=== PATIENT | male | born 1985 | race Caucasian/White ===

== ENCOUNTER 2020-07-31 10:36 | Outpatient (REF) | payer OTHER, SELFPAY ==
[2020-07-31 13:33] LABS: Basophils Percent Auto 0.6 % (0-2); Eosinophils Absolute Auto 1.5 X10*3/uL (0.0-0.4); Eosinophils Percent Auto 20.8 % (0-4); Hemoglobin 11.2 g/dl (14.0-18.0); Imm Gran Abs Auto 0.05 X10*3/uL (0.00-0.03); Imm Gran Pct Auto 0.7 % (0.0-0.4); Lymphocytes Absolute Auto 1.6 X10*3/uL (1.2-4.9); Lymphocytes Percent Auto 23.1 % (20-40); Mean Corpuscular Hemoglobin 29.7 pg (27.0-33.0); Mean Corpuscular Volume 92.8 fL (80-98); Mean Platelet Volume 9.1 fL (9.4-12.4); Monocytes Absolute Auto 0.7 X10*3/uL (0.1-1.2); Monocytes Percent Auto 9.8 % (2-11); Neutrophils Absolute Auto 3.1 X10*3/uL (2.0-8.3); Platelet Count 301 X10*3/uL (160-400); Red Blood Count 3.77 X10*6/uL (4.60-5.80); Red Cell Distribution Width 13.2 % (11.0-16.0)
[2020-07-31 13:58] LABS: Alanine Aminotransferase 22 U/L (0-40); Albumin Level 3.7 g/dL (3.5-5.0); Alkaline Phosphatase 73 U/L (39-117); Anion Gap 14 (12-20); Aspartate Amino Transferase 29 U/L (5-37); Bilirubin Total 0.4 mg/dL (0.0-1.0); Blood Urea Nitrogen 16 mg/dL (9-16); Carbon Dioxide 25 mmol/L (22-29); Chloride 106 mmol/L (96-108); Cholesterol 175 mg/dL; Estimated Glomerular Filt Rate > 60; Glucose Fasting 98 mg/dL (60-99); HDL Cholesterol 32 mg/dL; LDL Cholesterol Calculated 109 mg/dl; Potassium 4.8 mmol/L (3.3-5.1); Sodium 140 mmol/L (135-145); Triglycerides 174 mg/dL
[2020-07-31 14:04] LABS: MANUAL DIFF FLAG SCAN; SLIDE REVIEW VERIFIED
[2020-07-31 14:18] LABS: TSH reflex Free T4 1.35 uIU/mL (0.32-4.0)
== END 2020-07-31 10:37 | disposition home or self-care (01) ==
LOC: HO.WFDLDS 10:36
PROVIDERS: Visit Provider Family Medicine
DX: Z00.00 Encounter for general adult medical examination without abnormal findings (principal)
CPT/HCPCS: 36415; 80053; 80061; 84443; 85025

== ENCOUNTER 2021-04-21 16:12 | Emergency (ER) | payer OTHER, SELFPAY ==
--- NOTE | ~2021-04-21 | XR_ITS ---
EXAMINATION: XR hand wrist RT CLINICAL INFORMATION: right hand pain/swelling hx of gout COMPARISON: None. TECHNIQUE: 3 views of the right wrist FINDINGS: No fracture. Normal alignment. There may be subtle erosions along the distal margins of the fifth proximal phalanx. No radiopaque foreign body. There is soft tissue swelling of the second, third, and fourth digits but no underlying osseous abnormality is seen. XR/XR hand wrist RT IMPRESSION: Possible subtle erosions along the distal margins of the fifth proximal phalanx. Soft tissue swelling of the second, third, and fourth fingers but no underlying osseous abnormality of the digits.
[2021-04-21 17:30] VITALS: BP 161/103; PULSE 90; RESP 19; TEMP 37.2; O2SAT 99; BMI 36.0
--- NOTE | 2021-04-21 20:36 | ED.EXTPRO ---
HPI - Extremity Problem General Chief complaint: General Medical Stated complaint: rt hand swollen Time Seen by Provider: 04/21/21 17:01 Source: patient and family Mode of arrival: ambulatory Limitations: no limitations History of Present Illness MD Complaint: extremity pain and extremity swelling Onset (ago): day(s) (3) Pain Consistency: constant Location: right and upper extremity (hand/wrist) Severity scale (1-10): >10 Quality: aching and constant Relieving factors: nothing Exacerbating factors: range of motion and palpation Associated symptoms: denies other symptoms Context: history of gout Related Data Previous Rx's Medication Instructions Recorded docusate sodium 100 mg capsule 100 mg PO BID 30 Days #60 cap 08/22/20 folic acid 1 mg tablet 1 mg PO DAILY #60 tab 08/22/20 loperamide 2 mg capsule 2 mg PO QID PRN 30 Days #120 cap 08/22/20 magnesium hydroxide 400 mg/5 mL 30 ml PO BEDTIME PRN 90 Days #3000 08/22/20 oral suspension (Milk of Magnesia) ml sulfamethoxazole 800 1 tab PO Q12H 10 Days #20 tab 10/21/20 mg-trimethoprim 160 mg tablet (Bactrim DS) gabapentin 300 mg capsule 300 mg PO TID 30 Days #90 cap 12/03/20 clonidine HCl 0.1 mg tablet 0.1 mg PO QID #360 tab 01/12/21 quetiapine 25 mg tablet 25 mg PO BEDTIME #90 tab 01/12/21 naproxen 250 mg tablet 250 mg PO QID PRN #90 tab 03/07/21 acetaminophen 325 mg tablet 650 mg PO Q6H PRN #120 tab 03/31/21 cephalexin 500 mg capsule 500 mg PO Q6H 10 Days #40 cap 04/21/21 doxycycline hyclate 100 mg tablet 100 mg PO BID 10 Days #20 tab 04/21/21 indomethacin 50 mg capsule 50 mg PO TID #30 cap 04/21/21 oxycodone 5 mg tablet 5 mg PO Q6H PRN #14 tab 04/21/21 prednisone 20 mg tablet 60 mg PO DAILY 5 Days #15 tab 04/21/21 Allergies Allergy/AdvReac Type Severity Reaction Status Date / Time No Known Allergies Allergy Verified 04/21/21 17:30 Review of Systems Review of Systems: Constitutional : No Weight loss, No Fever, No Chills, No Night Sweats, No Fatigue, No Malaise ENT/Mouth : No Hearing loss, No Ear Pain, No Nasal Congestion, No Sinus Pain, No Hoarseness, No sore throat, No Rhinorrhea, No Swallowing Difficulty Eyes: No Eye Pain, No Swelling, No Redness, No Foreign Body, No Discharge, No Vision Changes Cardiovascular : No Chest Pain, No SOB, No Dyspnea on Exertion, No Orthopnea, No Edema, No Palpitations Respiratory : No Cough, No Sputum, No Wheezing, No Smoke Exposure, No Dyspnea Gastrointestinal : No Nausea, No Vomiting, No Diarrhea, No Constipation, No abdominal Pain, No Hematochezia, No Melena Genitourinary : no irregular bleeding, No Dysuria, No Urinary Frequency, No Hematuria, No Urinary Incontinence, No Urgency, No Flank Pain, No Urinary Flow Changes, No Hesitancy Musculoskeletal : + right hand/wrist joint pain/swelling, No Myalgias Skin : No Skin Lesions, No rash Neuro : No Weakness, No Numbness, No Paresthesias, No Loss of Consciousness, No Dizziness, No Headache Psych : No Anxiety/Panic, No Depression, No SI/HI/AH/VH, No Social Issues, Heme/Lymph: No Bruising, No Bleeding,No Lymphadenopathy Endocrine : No Polyuria, No Polydipsia, No Temperature Intolerance Yes all other systems are reviewed and are negative [facility] Past Medical History Attestation statement: The following information was validated with the patient. Surgical History No pertinent past surgical history Family History Family History Mother No problems noted. Father No problems noted. Social History Social History Housing: Apartment Alcohol intake: former Patient Tobacco Use Status: Never used Tobacco e-Cigarette/Vaping Use: Never Used Second Hand Smoke Exposure: No Advance Directives: No service: No Current occupational status: unemployed Cognitive needs: No Hearing needs: No Vision needs: No Physical Exam Vital Signs: Vital Signs: Last Vital Signs Temp 98.9 F 04/21/21 17:30 Pulse 90 04/21/21 17:30 Resp 19 04/21/21 17:30 BP 161/103 H 04/21/21 17:30 Pulse Ox 99 04/21/21 17:30 Body Mass Index 36.0 vital signs have been reviewed as normal and appeared to be correct. Blood pressure hypertensive 161/103. Heart rate normal. Respiration rate normal. Temperature normal. Oxygen saturation normal. Appearance: Alert. Oriented X3. No acute distress. Head: Normal external exam. Normocephalic. Atraumatic. Eyes: PERRLA. EOMI. Conjunctiva and sclera normal. Eyelids normal. ENT: Pharynx normal. Uvula midline. Moist mucous membranes. Neck: Normal inspection. Neck supple. FROM. CVS: Normal heart rate and rhythm. Respiratory: No respiratory distress. Painless inspiration. Skin: Skin warm and dry. Normal skin color. Normal skin turgor. No rashes/lesions/lacerations noted. Extremities: Patient has moderate tenderness palpation to the right hand/wrist with limited range of motion and soft tissue swelling and erythema no streaking/induration/fluctuance or edema noted. Most likely gout versus cellulitis. Otherwise all other Extremities exhibit normal range of motion and nontender. Neuro: Oriented X 3. No motor deficit. No sensory deficit. Reflexes normal. Normal steady gait. No focal neuro deficits noted. Vascular: + radial pulses/+ 2 distal pedal pulses/+2 dorsalis pedis b/l. Normal cap refill. No cyanosis noted to upper extremity nails and lower extremity toes nails. Course Course Course Narrative: 36-year-old male with a past medical history of gout presenting to the ED with complaints of atraumatic right hand pain/swelling gout flare up for the past 3 days worse today. Denies any other symptoms related to this. On exam it appears that patient has a gout flare-up versus cellulitic infection. No streaking noted. No fluctuance noted. No edema noted. Consistent with gouty changes not consistent with osteo myelitis. Will DC home with indomethacin, prednisone, oxycodone and antibiotics for possible cellulitic infection instructions to return if any new or worsening symptoms to follow up with primary care provider. Patient and family at bedside understand and agree this plan. MDM - Extremity (Nontraumatic) Medical Records Attestation: I reviewed the patient's medical records. Lab Data Attestation: I reviewed the patient's lab results. Imaging Data Right hand/wrist x-ray: Attestation: I personally reviewed and interpreted this imaging study as follows: Radiologist's impression: FINDINGS: No fracture. Normal alignment. There may be subtle erosions along the distal margins of the fifth proximal phalanx. No radiopaque foreign body. There is soft tissue swelling of the second, third, and fourth digits but no underlying osseous abnormality is seen. XR/XR hand wrist RT IMPRESSION: Possible subtle erosions along the distal margins of the fifth proximal phalanx. ? Soft tissue swelling of the second, third, and fourth fingers but no underlying osseous abnormality of the digits. Discharge Plan Discharge Clinical Impression: Gout Patient Disposition: Home, Self-Care Instructions: Low Purine Diet (ED), Gout (ED) Prescriptions: New cephalexin 500 mg capsule 500 mg PO Q6H 10 Days Qty: 40 RF: 0 doxycycline hyclate 100 mg tablet 100 mg PO BID 10 Days Qty: 20 RF: 0 indomethacin 50 mg capsule 50 mg PO TID Qty: 30 RF: 0 prednisone 20 mg tablet 60 mg PO DAILY 5 Days Qty: 15 RF: 0 oxycodone 5 mg tablet 5 mg PO Q6H PRN (Reason: pain) Qty: 14 RF: 0 No Action docusate sodium 100 mg capsule 100 mg PO BID 30 Days Qty: 60 RF: 3 folic acid 1 mg tablet 1 mg PO DAILY Qty: 60 RF: 4 loperamide 2 mg capsule 2 mg PO QID PRN (Reason: loose stool) 30 Days Qty: 120 RF: 4 magnesium hydroxide [Milk of Magnesia] 400 mg/5 mL suspension 30 ml PO BEDTIME PRN (Reason: constipation) 90 Days Qty: 3000 RF: 1 gabapentin 300 mg capsule 300 mg PO TID 30 Days Qty: 90 RF: 1 quetiapine 25 mg tablet 25 mg PO BEDTIME Qty: 90 RF: 0 clonidine HCl 0.1 mg tablet 0.1 mg PO QID Qty: 360 RF: 1 naproxen 250 mg tablet 250 mg PO QID PRN (Reason: for pain) Qty: 90 RF: 3 acetaminophen 325 mg tablet 650 mg PO Q6H PRN (Reason: pain) Qty: 120 RF: 1 sulfamethoxazole-trimethoprim [Bactrim DS] 800-160 mg tablet 1 tab PO Q12H 10 Days Qty: 20 RF: 0 Print Language: Albanian
[2021-04-21] MEDS: predniSONE 20 MG TABLET 60 MG PO (20:46)
[2021-04-21] MEDS: oxyCODONE HCl Immed Release 5 MG TABLET PO (20:46)
[2021-04-21 21:24] VITALS: RESP 17
== END 2021-04-21 21:25 | disposition home or self-care (01) ==
PROVIDERS: Emergency Provider Internal Medicine; PCP Family Medicine
DX: M10.041 Idiopathic gout, right hand (principal); Z79.899 Other long term (current) drug therapy
CPT/HCPCS: 73110; 73130; 99283; 99284

== ENCOUNTER 2021-07-17 16:31 | Outpatient (REF) | payer OTHER, SELFPAY ==
--- NOTE | ~2021-07-17 | XR_ITS ---
EXAMINATION: XR ANKLE, RIGHT CLINICAL INFORMATION: Strain. COMPARISON: None TECHNIQUE: AP, lateral, and mortise views of the right ankle. FINDINGS: Degenerative change both medially and laterally. The mortise is grossly intact. There is global soft tissue swelling. I must consider a joint effusion. There is also thickening in the region of the Achilles tendon. Correlation would be recommended here. Tendinopathy could not be excluded. XR/XR ankle RT min 3V IMPRESSION: Degenerative changes as described. Possible small effusion. No acute fracture or dislocation. If further evaluation is warranted recommend MR.
[2021-07-17 17:48] LABS: Hematocrit 42.9 % (42.0-52.0); Hemoglobin 13.7 g/dl (14.0-18.0); Mean Corpuscular HGB Conc 31.9 g/dl (31.0-36.0); Mean Corpuscular Hemoglobin 28.4 pg (27.0-33.0); Mean Platelet Volume 9.6 fL (9.4-12.4); Platelet Count 311 X10*3/uL (160-400); Red Blood Count 4.82 X10*6/uL (4.60-5.80); Red Cell Distribution Width 13.2 % (11.0-16.0); White Blood Count 10.7 X10*3/uL (4.8-10.8)
[2021-07-17 18:18] LABS: Iron 18 mcg/dL (45-160); Percent Iron Saturation 5 % (15-50); Total Iron Binding Capacity 357 mcg/dL (228-428); Unsaturated Iron Binding 339 ug/dL; Uric Acid 10.5 mg/dL (3.4-7.0)
== END 2021-07-17 16:32 | disposition home or self-care (01) ==
LOC: HO.XRAY 16:31
PROVIDERS: PCP Family Medicine; Visit Provider Hospitalist
DX: Z00.00 Encounter for general adult medical examination without abnormal findings (principal); M25.571 Pain in right ankle and joints of right foot; S96.911A Strain of unspecified muscle and tendon at ankle and foot level, right foot, initial encounter; D64.9 Anemia, unspecified; Z87.39 Personal history of other diseases of the musculoskeletal system and connective tissue; X58.XXXA Exposure to other specified factors, initial encounter; Y93.9 Activity, unspecified; Y92.9 Unspecified place or not applicable; Y99.9 Unspecified external cause status
CPT/HCPCS: 36415; 73610; 83540; 84550; 85027

== ENCOUNTER 2021-07-22 12:45 | Outpatient (REF) | payer OTHER, SELFPAY ==
--- NOTE | ~2021-07-22 | US_ITS ---
EXAMINATION: US EXTREMITY NONVASCULAR CLINICAL INFORMATION: Epidermal cyst. Fluctuant mass left posterior ankle. COMPARISON: None TECHNIQUE: Limited imaging through bilateral ankle was performed. FINDINGS: Imaging through bilateral posterior ankle reveals a hypodense to echogenic area with shadowing in the subcutaneous soft tissues. The lesion on the right side measures 1.5 x 0.77 x 1.5 cm. The lesion on the left side measures 2.8 x 3.2 x 1.2 cm. US/US extremity nonvascular cantu IMPRESSION: Bilateral hypoechoic to echogenic areas posterior to the ankle joint in the subcutaneous soft tissues, exophytic most consistent with retrocalcaneal bursitis.
== END 2021-07-22 12:46 | disposition home or self-care (01) ==
LOC: HO.US 12:45
PROVIDERS: Visit Provider Family Medicine
DX: L72.0 Epidermal cyst (principal)
CPT/HCPCS: 76882

== ENCOUNTER 2021-08-18 09:36 | Outpatient (REF) | payer OTHER, SELFPAY ==
[2021-08-18 11:58] LABS: Alanine Aminotransferase 23 U/L (0-40); Albumin Level 4.1 g/dL (3.5-5.0); Alkaline Phosphatase 83 U/L (39-117); Anion Gap 12 (12-20); Aspartate Amino Transferase 28 U/L (5-37); Bilirubin Total 0.4 mg/dL (0.0-1.0); Blood Urea Nitrogen 10 mg/dL (9-16); Calcium 9.5 mg/dL (8.4-10.2); Carbon Dioxide 29 mmol/L (22-29); Chloride 108 mmol/L (96-108); Cholesterol 183 mg/dL; Estimated Glomerular Filt Rate > 60; Glucose Random 98 mg/dL (60-115); HDL Cholesterol 31 mg/dL; LDL Cholesterol Calculated 82 mg/dl; Potassium 4.6 mmol/L (3.3-5.1); Sodium 144 mmol/L (135-145); Triglycerides 350 mg/dL
[2021-08-18 12:11] LABS: Appearance Urine CLEAR; Color Urine YELLOW; Glucose Urine UA NEG (NEG); Leukocyte Esterase Urine NEG (NEG); Nitrite Urine NEG (NEG); Specific Gravity - Urine 1.015 (1.005-1.025); Urine Blood NEG (NEG); Urine Ketones NEG (NEG); Urine Protein NEG (NEG-TRACE)
[2021-08-18 12:19] LABS: TSH reflex Free T4 3.15 uIU/mL (0.32-4.0)
[2021-08-18 12:37] LABS: Microalbum/Creatinine Ratio Ur 44.8 ug/mg cr
== END 2021-08-18 09:37 | disposition home or self-care (01) ==
LOC: HO.WFDLDS 09:36
PROVIDERS: Visit Provider Family Medicine
DX: Z00.00 Encounter for general adult medical examination without abnormal findings (principal); I10 Essential (primary) hypertension; M79.89 Other specified soft tissue disorders
CPT/HCPCS: 36415; 80053; 80061; 81003; 82043; 84443

== ENCOUNTER 2021-10-21 10:02 | Outpatient (REF) | payer OTHER, SELFPAY ==
--- NOTE | ~2021-10-21 | XR_ITS ---
EXAMINATION: XR HAND, LEFT CLINICAL INFORMATION: Soft tissue disorder. COMPARISON: None TECHNIQUE: PA, lateral, and oblique views of the left hand. FINDINGS: There is moderate soft tissue swelling PIP joints 2nd through 5th digits. There is minimal loss of PIP and DIP joint space with no bony erosive changes seen. Subchondral cystic changes seen along the proximal phalanx proximal end 4th digit. There is moderate dorsal hand soft tissue swelling as well. There is no acute fracture or dislocation. XR/XR hand LT 2V IMPRESSION: Moderate soft tissue swelling PIP joints all digits and dorsal hand likely cellulitis. There is no fracture seen. There is minimal loss of PIP joints all digits.
[2021-10-21 10:25] LABS: MANUAL DIFF FLAG NO
[2021-10-21 10:37] LABS: Basophils Absolute Auto 0.1 X10*3/uL (0.0-0.2); Basophils Percent Auto 0.6 % (0-2); Eosinophils Absolute Auto 0.4 X10*3/uL (0.0-0.4); Eosinophils Percent Auto 4.6 % (0-4); Hematocrit 46.1 % (42.0-52.0); Hemoglobin 15.1 g/dl (14.0-18.0); Imm Gran Abs Auto 0.03 X10*3/uL (0.00-0.03); Imm Gran Pct Auto 0.4 % (0.0-0.4); Lymphocytes Absolute Auto 1.4 X10*3/uL (1.2-4.9); Mean Corpuscular HGB Conc 32.8 g/dl (31.0-36.0); Mean Corpuscular Hemoglobin 28.3 pg (27.0-33.0); Mean Corpuscular Volume 86.3 fL (80.0-98.0); Mean Platelet Volume 8.9 fL (9.4-12.4); Monocytes Absolute Auto 0.7 X10*3/uL (0.1-1.2); Monocytes Percent Auto 8.1 % (2-11); Neutrophils Absolute Auto 5.7 x10*3/uL (2.0-8.3); Neutrophils Percent Auto 69.3 % (45-73); Platelet Count 408 X10*3/uL (160-400); Red Blood Count 5.34 X10*6/uL (4.60-5.80); Red Cell Distribution Width 13.5 % (11.0-16.0); White Blood Count 8.2 X10*3/uL (4.8-10.8)
[2021-10-21 11:06] LABS: Alanine Aminotransferase 13 U/L (0-40); Albumin Level 4.6 g/dL (3.5-5.0); Alkaline Phosphatase 114 U/L (39-117); Anion Gap 15 (12-20); Aspartate Amino Transferase 18 U/L (5-37); Bilirubin Total 0.9 mg/dL (0.0-1.0); Blood Urea Nitrogen 21 mg/dL (9-16); Calcium 9.9 mg/dL (8.4-10.2); Carbon Dioxide 23 mmol/L (22-29); Chloride 107 mmol/L (96-108); Estimated Glomerular Filt Rate > 60; Glucose Random 98 mg/dL (60-115); Potassium 4.1 mmol/L (3.3-5.1); Rheumatoid Factor < 15.0 IU/mL (<15.0); Sodium 141 mmol/L (135-145); Total Protein 8.2 g/dL (6.5-8.0)
[2021-10-21 11:16] LABS: Erythrocyte Sedimentation Rate 23 MM/HR (0-15)
[2021-10-21 11:23] LABS: Uric Acid 11.1 mg/dL (3.4-7.0)
[2021-10-23 11:32] LABS: Cyclic Citrullinated Peptide <16 UNITS
[2021-10-23 13:47] LABS: Anti Nuclear Antibody Screen NEGATIVE (NEGATIVE)
[2021-10-23 14:52] LABS: CRP High Sensitivity >10.0 mg/L
== END 2021-10-21 10:03 | disposition home or self-care (01) ==
LOC: HO.LAB 10:02
PROVIDERS: PCP Family Medicine; Visit Provider Family Medicine
DX: Z00.00 Encounter for general adult medical examination without abnormal findings (principal); M79.89 Other specified soft tissue disorders; Z87.39 Personal history of other diseases of the musculoskeletal system and connective tissue
CPT/HCPCS: 36415; 73120; 80053; 84550; 85025; 85652; 86038; 86039; 86141; 86200; 86431

== ENCOUNTER 2021-10-31 09:46 | Outpatient (REF) | payer OTHER, SELFPAY ==
[2021-10-31 12:10] LABS: Rheumatoid Factor < 15.0 IU/mL (<15.0); Uric Acid 10.2 mg/dL (3.4-7.0)
[2021-10-31 12:17] LABS: Erythrocyte Sedimentation Rate 3 MM/HR (0-15)
[2021-11-01 14:31] LABS: CRP High Sensitivity 3.5 mg/L
== END 2021-10-31 09:47 | disposition home or self-care (01) ==
LOC: HO.WFDLDS 09:46
PROVIDERS: Visit Provider Family Medicine
DX: M19.041 Primary osteoarthritis, right hand (principal); M19.042 Primary osteoarthritis, left hand; M10.9 Gout, unspecified
CPT/HCPCS: 36415; 84550; 85652; 86141; 86431

== ENCOUNTER 2021-11-25 11:24 | Outpatient (REF) | payer OTHER, SELFPAY ==
[2021-11-25 13:50] LABS: MANUAL DIFF FLAG NO
[2021-11-25 13:54] LABS: Basophils Absolute Auto 0.1 X10*3/uL (0.0-0.2); Basophils Percent Auto 0.8 % (0-2); Eosinophils Absolute Auto 0.5 X10*3/uL (0.0-0.4); Eosinophils Percent Auto 8.3 % (0-4); Hematocrit 41.4 % (42.0-52.0); Imm Gran Abs Auto 0.06 X10*3/uL (0.00-0.03); Lymphocytes Absolute Auto 1.6 X10*3/uL (1.2-4.9); Lymphocytes Percent Auto 25.7 % (20-40); Mean Corpuscular HGB Conc 33.8 g/dl (31.0-36.0); Mean Corpuscular Hemoglobin 29.4 pg (27.0-33.0); Mean Platelet Volume 9.5 fL (9.4-12.4); Monocytes Absolute Auto 0.5 X10*3/uL (0.1-1.2); Monocytes Percent Auto 7.5 % (2-11); Neutrophils Absolute Auto 3.6 x10*3/uL (2.0-8.3); Neutrophils Percent Auto 56.7 % (45-73); Platelet Count 310 X10*3/uL (160-400); Red Blood Count 4.76 X10*6/uL (4.60-5.80); White Blood Count 6.3 X10*3/uL (4.8-10.8)
[2021-11-25 14:53] LABS: Alanine Aminotransferase 23 U/L (0-40); Alkaline Phosphatase 73 U/L (39-117); Anion Gap 13 (12-20); Aspartate Amino Transferase 22 U/L (5-37); Bilirubin Total 0.6 mg/dL (0.0-1.0); Blood Urea Nitrogen 13 mg/dL (9-16); Calcium 9.2 mg/dL (8.4-10.2); Carbon Dioxide 24 mmol/L (22-29); Chloride 109 mmol/L (96-108); Estimated Glomerular Filt Rate 56; Glucose Random 103 mg/dL (60-115); Potassium 4.4 mmol/L (3.3-5.1); Sodium 142 mmol/L (135-145); Total Protein 6.6 g/dL (6.5-8.0)
[2021-11-25 15:04] LABS: Uric Acid 11.3 mg/dL (3.4-7.0)
== END 2021-11-25 11:25 | disposition home or self-care (01) ==
LOC: HO.WFDLDS 11:24
PROVIDERS: Visit Provider Family Medicine
DX: Z00.00 Encounter for general adult medical examination without abnormal findings (principal); M10.9 Gout, unspecified
CPT/HCPCS: 36415; 80053; 84550; 85025

== ENCOUNTER 2022-02-18 10:47 | Outpatient (REF) | payer OTHER, SELFPAY ==
[2022-02-18 14:15] LABS: MANUAL DIFF FLAG NO
[2022-02-18 14:21] LABS: Basophils Absolute Auto 0.1 X10*3/uL (0.0-0.2); Basophils Percent Auto 1.3 % (0-2); Eosinophils Absolute Auto 0.6 X10*3/uL (0.0-0.4); Eosinophils Percent Auto 8.8 % (0-4); Hematocrit 46.3 % (42.0-52.0); Hemoglobin 15.1 g/dl (14.0-18.0); Imm Gran Abs Auto 0.03 X10*3/uL (0.00-0.03); Imm Gran Pct Auto 0.5 % (0.0-0.4); Lymphocytes Absolute Auto 1.6 X10*3/uL (1.2-4.9); Mean Corpuscular HGB Conc 32.6 g/dl (31.0-36.0); Mean Corpuscular Hemoglobin 29.7 pg (27.0-33.0); Mean Platelet Volume 9.8 fL (9.4-12.4); Monocytes Absolute Auto 0.6 X10*3/uL (0.1-1.2); Monocytes Percent Auto 9.9 % (2-11); Neutrophils Absolute Auto 3.5 x10*3/uL (2.0-8.3); Neutrophils Percent Auto 54.5 % (45-73); Platelet Count 285 X10*3/uL (160-400); Red Blood Count 5.09 X10*6/uL (4.60-5.80); Red Cell Distribution Width 14.6 % (11.0-16.0); White Blood Count 6.4 X10*3/uL (4.8-10.8)
[2022-02-18 14:33] LABS: Alanine Aminotransferase 19 U/L (0-40); Albumin Level 4.5 g/dL (3.5-5.0); Alkaline Phosphatase 70 U/L (39-117); Anion Gap 17 (12-20); Aspartate Amino Transferase 22 U/L (5-37); Bilirubin Total 0.7 mg/dL (0.0-1.0); Blood Urea Nitrogen 8 mg/dL (9-16); Calcium 9.4 mg/dL (8.4-10.2); Carbon Dioxide 22 mmol/L (22-29); Chloride 108 mmol/L (96-108); Estimated Glomerular Filt Rate > 60; Glucose Random 91 mg/dL (60-115); Potassium 4.3 mmol/L (3.3-5.1); Sodium 143 mmol/L (135-145); Total Protein 7.3 g/dL (6.5-8.0); Uric Acid 5.7 mg/dL (3.4-7.0)
[2022-02-18 15:08] LABS: Erythrocyte Sedimentation Rate 2 MM/HR (0-15)
[2022-02-20 15:02] LABS: CRP High Sensitivity 5.7 mg/L
== END 2022-02-18 10:48 | disposition home or self-care (01) ==
LOC: HO.WFDLDS 10:47
PROVIDERS: Visit Provider Family Medicine
DX: Z00.00 Encounter for general adult medical examination without abnormal findings (principal); M10.9 Gout, unspecified; M79.89 Other specified soft tissue disorders
CPT/HCPCS: 36415; 80053; 84550; 85025; 85652; 86141

== ENCOUNTER 2023-06-11 08:17 | Outpatient (AMB) | payer OTHER, SELFPAY ==
--- NOTE | 2023-06-11 08:20 | MHC.PC.OV ---
Vital Signs 06/11/23 08:27 Weight 219 lb 2 oz BP 118/70 Blood Pressure Location Lt brachial Position Sitting Respiration 12 Pulse 83 Pulse Source Pulse Oximeter Pulse Oximetry (%) 98 Oxygen Delivery Method Room Air Intake Visit Reasons: Medication Follow Up Intake Note: Patient is here with his mother. Patient requests refills on all of his medications. Patient reports having a swollen thumb and believes it may be a gout flare up. 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 He?is?fasting?however?and?will?get?his?labs?drawn?today. Patient?ran?out?of?allopurinol.??Did?not?call?for?refills. Now?has?significant?flare?up?of?gout?in?right?hand No?other?complaints?today. [facility] Medical History (Updated 05/04/22 @ 13:50 by Darcy Dhillon [facility]) Gout Surgical History No pertinent past surgical history Family History Mother No problems noted. Father No problems noted. Social History Housing: Apartment Alcohol intake: former Patient Tobacco Use Status: Never used Tobacco e-Cigarette/Vaping Use: Never Used Second Hand Smoke Exposure: No service: No Current occupational status: unemployed Current occupational exposures/hazards: No Cognitive needs: No Hearing needs: No Vision needs: No Questionnaire DARRIN-7 AMB Questionnaire DARRIN-7 Date DARRIN - 7 assessed: 04/21/21 Source: Developed by Drs. Seth Giraldo, Jaye Suero, Dennis Almaraz and colleagues, with an educational rita from [employer]. Review of Systems Const Denies chills, Denies fatigue, Denies fever(s), Denies headache(s) and Denies weakness Eyes Denies change in vision ENT Denies dizziness, Denies headache(s), Denies hearing loss, Denies nasal congestion, Denies sinus pain, Denies sinus pressure and Denies sore throat Card Denies chest pain, Denies lightheadedness, Denies dyspnea and Denies other (palpitations) Resp Denies cough, Denies dyspnea and Denies wheezing GI Denies abdominal pain, Denies melena, Denies hematochezia, Denies change in bowel habits, Denies dyspepsia and Denies nausea Denies hematuria and Denies dysuria Musc Details: Bilateral?hand?pain?and?swelling,?right?worse?than?left Denies abnormal gait, Denies myalgias, Denies arthralgias, Denies numbness and Denies tingling Skin/Breast Denies rash, Denies unusual bruising and Denies wounds Neuro Denies abnormal gait, Denies dizziness, Denies headache(s), Denies memory loss, Denies numbness, Denies Sensory deficit (Neuro), Denies tingling and Denies weakness Psych Denies anxiety, Denies depression and Denies memory loss Endo Denies cold intolerance, Denies fatigue, Denies heat intolerance, Denies polydipsia and Denies polyuria Rehan/Lymph Denies easy bleeding and Denies easy bruising Aller/Immun Denies wheezing Physical exam (Primary Care) Vital Signs: Last Vital Signs Pulse 83 06/11/23 08:27 Resp 12 06/11/23 08:27 BP 118/70 06/11/23 08:27 Pulse Ox 98 06/11/23 08:27 Oxygen Delivery Method Room Air 06/11/23 08:27 Tobacco/Smoking Status: Tobacco use Status Tobacco use date assessed 06/11/23 06/11/23 08:30 Patient Tobacco Use Status Never used Tobacco 06/11/23 08:20 e-Cigarette/Vaping Use Never Used 06/11/23 08:20 Const General: no acute distress, well developed, alert and awake Nutritional Appearance: well nourished Orientation/consciousness: patient oriented x3 HENMT Head: Yes normocephalic and Yes atraumatic Ears: hearing grossly normal bilaterally and TM's normal bilaterally General nose exam: Normal external nose present and Normal nares present Mouth: Normal oral and palatal mucosa present and moist mucous membranes Teeth and gingiva: dentition normal Throat: Yes posterior oropharynx normal Eyes Pupils: Equal, round and reactive pupils present and Pupil accommodation reflex normal EOM: EOMs intact bilaterally Neck Neck: Yes normal visual inspection, Yes no lymphadenopathy and Yes trachea midline Thyroid: Thyroid normal Carotids: no bruits Lymphatic: no lymphadenopathy noted Chest Chest palpation & inspection: normal inspection of the chest Resp Effort & Inspection: normal respiratory effort Auscultation: clear to auscultation bilaterally Cardio Rate: regular rate Rhythm: regular rhythm Heart sounds: S1 normal heart sound present, S2 normal heart sound present, no gallops, no murmurs and no rubs Bruits: no abdominal aortic bruits and no carotid bruits GI Palpation (GI): No Abdominal aortic bruit present, Soft to palpation, nontender, No hepatosplenomegaly present and No Rebound tenderness present Auscultation: normal bowel sounds General: Yes no CVA tenderness Back/Spine/Pelvis Back: no CVA tenderness Cervical Spine: cervical ROM normal and No Cervical spine tenderness Thoracic/Lumbar Spine: thoraco-lumbar ROM normal, No pain with thoraco-lumbar ROM, No thoracic spinal tenderness and No lumbar spinal tenderness Skin Lesions: no lesions Rashes: no rashes Trauma: no lacerations or abrasions Wounds: no wounds Nails: normal Neuro General: patient oriented x3, gait normal and CN's II-XI intact bilaterally Cranial nerves: Yes Equal, round and reactive pupils present Cognition (Neuro): normal cognition Gait exam (Neuro): Normal gait present Motor exam (neuro): 5/5 motor strength present throughout Sensory Exam: No Sensory deficit (Neuro) Deep tendon reflexes (DTR's): Right patellar reflex intensity grade: 2+ and Left patellar reflex intensity grade: 2+ Extrem Other: Swelling/tophi?bilateral?hands.??Right?2nd?MP?joint?severely?swollen.?? General: Yes normal to inspection and No edema Psych Appearance: grossly normal Affect: normal affect Attitude: cooperative Thought process: Normal thought process present Assessment and Plan Assessment & Plan (1) Gout: Code(s): M10.9 - Gout, unspecified Plan: Patient?ran?out?of?allopurinol?and?has?not?gotten?any?refills Also?missed?his?appointment?with?rheumatology. Currently?has?significant?gouty?flare?up?in?right?hand?and?has?bilateral?tophi?on?hands?and?fingers Will?give?him?prednisone?and?restart?his?allopurinol. Check?uric?acid Follow-up?in?2?weeks Referring?him?back?to?Rheumatology?and?advised?him?to?ensure?he?does?not?miss?his?appointment. (2) Annual physical exam: Code(s): Z00.00 - Encounter for general adult medical examination without abnormal findings Plan: 38-year-old?male?presents?for?complete?physical?exam Encouraged?healthy?diet?with?active?lifestyle?and?plenty?of?exercise Orders: Orders Comprehensive [place]. Panel Fast Today Z00.00 - Encounter for general adult medical examination without abnormal findings Lipid Panel Today Z00.00 - Encounter for general adult medical examination without abnormal findings Complete Blood Count Auto Diff Today Z00.00 - Encounter for general adult medical examination without abnormal findings Uric Acid Today M10.9 - Gout, unspecified Microalbumin, Random (w Creat) Today I10 - Essential (primary) hypertension TSH reflex Free T4 Today Z00.00 - Encounter for general adult medical examination without abnormal findings UA and rflx microscopic Today Z00.00 - Encounter for general adult medical examination without abnormal findings Medications: New prednisone 40 mg (2 x 20 mg) PO DAILY 10 tabs 0RF 5 days Refilled allopurinol 300 mg PO DAILY 30 tabs 1RF 30 days M10.9 - Gout, unspecified quetiapine 25 mg PO BEDTIME 90 tabs 1RF 90 days Coding Level of Care Code Est Pt Level 4 (87252) Diagnoses Gout M10.9 Annual physical exam Z00.00
[2023-06-11 08:27] VITALS: BP 118/70; PULSE 83; RESP 12; O2SAT 98
== END 2023-06-11 08:58 | disposition home or self-care (01) ==
PROVIDERS: PCP Family Medicine; Visit Provider Family Medicine
DX: M10.9 Gout, unspecified (principal)
CPT/HCPCS: 99214

== ENCOUNTER 2023-06-11 09:04 | Outpatient (REF) | payer OTHER, SELFPAY ==
[2023-06-11 11:40] LABS: MANUAL DIFF FLAG NO
[2023-06-11 11:50] LABS: Basophils Absolute Auto 0.1 X10*3/uL (0.0-0.2); Basophils Percent Auto 0.6 % (0-2); Eosinophils Absolute Auto 0.5 X10*3/uL (0.0-0.4); Eosinophils Percent Auto 6.5 % (0-4); Hematocrit 48.9 % (42.0-52.0); Hemoglobin 16.3 g/dl (14.0-18.0); Imm Gran Abs Auto 0.04 X10*3/uL (0.00-0.03); Imm Gran Pct Auto 0.5 % (0.0-0.4); Lymphocytes Absolute Auto 1.8 X10*3/uL (1.2-4.9); Lymphocytes Percent Auto 21.2 % (20-40); Mean Corpuscular HGB Conc 33.3 g/dl (31.0-36.0); Mean Corpuscular Hemoglobin 29.2 pg (27.0-33.0); Mean Corpuscular Volume 87.6 fL (80.0-98.0); Mean Platelet Volume 9.3 fL (9.4-12.4); Monocytes Absolute Auto 0.7 X10*3/uL (0.1-1.2); Monocytes Percent Auto 7.9 % (2-11); Neutrophils Absolute Auto 5.3 x10*3/uL (2.0-8.3); Neutrophils Percent Auto 63.3 % (45-73); Platelet Count 311 X10*3/uL (160-400); Red Blood Count 5.58 X10*6/uL (4.60-5.80); Red Cell Distribution Width 13.1 % (11.0-16.0); White Blood Count 8.3 X10*3/uL (4.8-10.8)
[2023-06-11 14:26] LABS: Alanine Aminotransferase 18 U/L (0-40); Albumin Level 4.7 g/dL (3.5-5.0); Alkaline Phosphatase 86 U/L (39-117); Anion Gap 13 (12-20); Aspartate Amino Transferase 17 U/L (5-37); Bilirubin Total 0.5 mg/dL (0.0-1.0); Blood Urea Nitrogen 15 mg/dL (9-16); Calcium 9.8 mg/dL (8.4-10.2); Carbon Dioxide 22 mmol/L (22-29); Chloride 108 mmol/L (96-108); Cholesterol 189 mg/dL (<200); Estimated Glomerular Filt Rate > 60; Glucose Fasting 120 mg/dL (60-99); HDL Cholesterol 34 mg/dL (>40); LDL Cholesterol Calculated 122 mg/dL (<100); Potassium 3.9 mmol/L (3.3-5.1); Sodium 139 mmol/L (135-145); Total Protein 8.3 g/dL (6.5-8.0); Triglycerides 168 mg/dL (<150); Uric Acid 9.7 mg/dL (3.4-7.0)
[2023-06-11 14:40] LABS: TSH reflex Free T4 2.67 uIU/mL (0.32-4.0)
== END 2023-06-11 09:05 | disposition home or self-care (01) ==
LOC: HO.WFDLDS 09:04
PROVIDERS: Visit Provider Family Medicine
DX: Z00.00 Encounter for general adult medical examination without abnormal findings (principal); M10.9 Gout, unspecified
CPT/HCPCS: 36415; 80053; 80061; 84443; 84550; 85025

== ENCOUNTER 2023-06-25 09:33 | Outpatient (AMB) | payer OTHER, SELFPAY ==
[2023-06-25 09:49] VITALS: BP 118/88; PULSE 67; RESP 17; O2SAT 98; BMI 34.3
--- NOTE | 2023-06-25 09:49 | A.OFFPC_ITS ---
Vital Signs 06/25/23 09:49 Height 5 ft 7 in Weight 219 lb BMI 34.3 BP 118/88 Blood Pressure Location Rt brachial Position Sitting Respiration 17 Pulse 67 Pulse Source Pulse Oximeter Pulse Oximetry (%) 98 Oxygen Delivery Method Room Air Intake Visit Reasons: f/u labs and gout Policy Intern Required: No Accompanied by: Mother Allergies No Known Allergies Allergy (Verified 06/25/23 09:52) Tobacco use date assessed: 06/25/23 Dental Screening Dental Screen Date: 06/25/23 Did you have a dental visit in the last 12 months?: No Did you have a dental problem in the last 6 months where you did not have access to dental care?: Yes Was dental information given to patient?: Yes (Advise pt to call the insurance) HPI f/u labs and gout HPI Details 38 y/o male presents to f/u gout and CPE -labs. Had given him script for prednisone and restarted his allopurinol. Had made a new referral to rheumatology. Labs were drawn 06/11/23. Reviewed labs with pt. Triglycerides 168. TC 189. LDL 122. HDL low at 34. Uric acid 9.7 mg/dL. He reports he had missed the appt. 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 Pt reports swelling/inflammation has reduced but still notes joint pain on numerous joints. [facility] Medical History (Updated 05/04/22 @ 13:50 by SULAIMAN Lobato) Gout Surgical History No pertinent past surgical history Family History Mother No problems noted. Father No problems noted. Social History Housing: Apartment Alcohol intake: former Patient Tobacco Use Status: Never used Tobacco e-Cigarette/Vaping Use: Never Used Second Hand Smoke Exposure: No service: No Current occupational status: unemployed Current occupational exposures/hazards: No Cognitive needs: No Hearing needs: No Vision needs: No Questionnaire PHQ-9 Over the last 2 weeks, how often have you been bothered by any of the following problems? 1. Little interest or pleasure in doing things: not at all 2. Feeling down, depressed, or hopeless: not at all 3. Trouble falling or staying asleep, or sleeping too much: not at all 4. Feeling tired or having little energy: not at all 5. Poor appetite or overeating: not at all 6. Feeling bad about yourself - or that you are a failure or have let yourself or your family down: not at all 7. Trouble concentrating on things, such as reading the newspaper or watching television: not at all 8. Moving or speaking so slowly that other people could have noticed. Or the opposite - being so fidgety or restless that you have been moving around a lot more than usual: not at all 9. Thoughts that you would be better off or of hurting yourself in some way: not at all Total score: 0 Depression Screening Interpretation: Negative Depression Screening Done: Yes 38547 - PHQ-9 Billing: Yes Source: Developed by Drs. Seth Giraldo, Jaye Suero, Dennis Almaraz and colleagues, with an educational rita from [employer]. Thrive Questionnaire Date Thrive assessed: 06/25/23 I am a: Patient What is your living situation today?: I have a steady place to live Within the past 12 months, did the food you bought not last and you didn't have the money to get more?: Never true Within the past 12 months, did you worry whether your food would run out before you got money to buy more?: Never true Do you have trouble paying for medicines?: No Do you have trouble getting transportation to medical appointments?: No Do you have trouble paying your heating and electricity bill?: No Do you have trouble taking care of your child, family member or friend?: No Do you have trouble with day-to-day activities such as bathing, preparing meals, shopping, managing finances, etc.?: No Are you currently unemployed and looking for a job?: No Are you interested in more education?: No Please select the resources that you would like help with: None Currently or been in a relationship where the following occur: no concerns reported AUDIT C Alcohol Use Questionnaire (AUDIT-C) 1. How often do you have a drink containing alcohol?: Never Total Score: 0 DARRIN-7 AMB Questionnaire DARRIN-7 Date DARRIN - 7 assessed: 06/25/23 Feeling nervous, anxious, or on edge: 2 = More than half the days Not being able to stop or control worryin = More than half the days Worrying too much about different things: 3 = Nearly every day Trouble relaxin = Nearly every day Being so restless that it is hard to sit still: 3 = Nearly every day Becoming easily annoyed or irritable: 3 = Nearly every day Feeling afraid as if something awful might happen: 1 = Several days Total DARRIN-7 score (0-4 normal; 5-9 mild; 10-14 moderate; 15-21 severe): 17 Source: Developed by Drs. Seth Giraldo, Jaye Suero, Dennis Almaraz and colleagues, with an educational rita from [employer]. DARRIN-7 Assessment Billing DARRIN-7 Assessment Tool: DARRIN-7 Assessment 42998 Review of Systems Const Denies chills, Denies fatigue, Denies fever(s), Denies headache(s) and Denies weakness ENT Denies dizziness and Denies headache(s) Card Denies dyspnea Resp Denies cough, Denies dyspnea, Denies wheezing and Denies other (shortness of breath) Musc Denies numbness and Denies tingling Neuro Denies dizziness, Denies headache(s), Denies numbness, Denies tingling and Denies weakness Psych Denies anxiety and Denies depression Endo Denies fatigue Aller/Immun Denies wheezing Physical exam (Primary Care) Vital Signs: Last Vital Signs Pulse 67 06/25/23 09:49 Resp 17 06/25/23 09:49 BP 118/88 06/25/23 09:49 Pulse Ox 98 06/25/23 09:49 Oxygen Delivery Method Room Air 06/25/23 09:49 BMI result Body Mass Index 34.3 Tobacco/Smoking Status: Tobacco use Status Tobacco use date assessed 06/25/23 06/25/23 09:59 Patient Tobacco Use Status Never used Tobacco 06/25/23 09:51 e-Cigarette/Vaping Use Never Used 06/25/23 09:51 PHQ-9: PHQ-9 Score PHQ-9: Total score 0 06/25/23 10:30 Depression Screening Interpretation: Negative Thrive Assessment: Date of Thrive Assessment Date Thrive assessed 06/25/23 06/25/23 09:59 Currently or been in a relationship where the following occur: no concerns reported Const General: well developed; No acute distress Nutritional Appearance: well nourished Orientation/consciousness: patient oriented x3 [facility] Head: Yes normocephalic and Yes atraumatic Eyes General: appearance normal, both eyes and all related structures Pupils: Equal, round and reactive pupils present EOM: EOMs intact bilaterally Resp Effort & Inspection: normal respiratory effort Neuro General: patient oriented x3 and gait normal Cranial nerves: Yes Equal, round and reactive pupils present Psych Affect: normal affect Assessment and Plan Assessment & Plan (1) Gouty arthritis: Code(s): M10.9 - Gout, unspecified Plan: Multiple?gout?flare?ups?and?gouty?arthritis?with?tophi?over?multiple?joints. Had?given?him?prednisone?and?resumed?his?allopurinol. Swelling?and?inflammation?have?reduced?but?patient?still?notes?joint?pain?at?num erous?large?and?small?joints. Continue?allopurinol.??Recheck?uric?acid?level I?had?referred?him?to?Rheumatology?but?he?and?his?mom?got?lost?and?missed?their? appointment.??I?have?made?a?new?referral.??Asking?office?to?check?on?the?st atus?of?the?referral. Patient?has?significant?joint?deformities?and?pain. I?will?ask?the?nurse?navigator?to to?help?him?with?disability?forms. Will?write?a?letter?as?I?feel?that?he?is?unable?to?wor k?and?would?benefit?from?feel?assistance. (2) Gout: Code(s): M10.9 - Gout, unspecified Plan: As?above (3) Low HDL (under 40): Code(s): E78.6 - Lipoprotein deficiency Plan: Difficulty?with?remaining?active?and?exercising.??Will?monitor Orders: Orders Uric Acid Today M10.9 - Gout, unspecified Erythrocyte Sedimentation Rate Today M10.9 - Gout, unspecified Hemoglobin A1c Today R73.01 - Impaired fasting glucose Comprehensive Met. Panel Today M10.9 - Gout, unspecified Referrals Nurse Navigator Referral M10.9 - Gout, unspecified Medications: New meloxicam 15 mg PO DAILY 30 days 30 tabs 2RF meloxicam 15 mg PO DAILY 30 days 30 tabs 2RF Refilled allopurinol 300 mg PO DAILY 30 days 30 tabs 3RF M10.9 - Gout, unspecified allopurinol 300 mg PO DAILY 30 days 30 tabs 3RF M10.9 - Gout, unspecified Coding Level of Care Code Est Pt Level 3 (01897) Diagnoses Gouty arthritis M10.9 Gout M10.9 Low HDL (under 40) E78.6 Additional Codes DARRIN-7 Assessment Billing - DARRIN-7 Assessment Tool: DARRIN-7 Assessment 07540 ([id number])
== END 2023-06-25 10:53 | disposition home or self-care (01) ==
PROVIDERS: PCP Family Medicine; Visit Provider Family Medicine
DX: M10.9 Gout, unspecified (principal); E78.6 Lipoprotein deficiency
CPT/HCPCS: 99213

== ENCOUNTER 2023-06-25 11:06 | Outpatient (REF) | payer OTHER, SELFPAY ==
[2023-06-25 15:11] LABS: Estimated Average Glucose 91 mg/dL; Hemoglobin A1C 114.7128 umol/L; Hemoglobin A1c % 4.8 % (<6.0)
[2023-06-25 15:31] LABS: Alanine Aminotransferase 17 U/L (0-40); Albumin Level 4.5 g/dL (3.5-5.0); Alkaline Phosphatase 77 U/L (39-117); Anion Gap 12 (12-20); Aspartate Amino Transferase 16 U/L (5-37); Bilirubin Total 0.5 mg/dL (0.0-1.0); Blood Urea Nitrogen 20 mg/dL (9-16); Calcium 9.7 mg/dL (8.4-10.2); Carbon Dioxide 22 mmol/L (22-29); Chloride 111 mmol/L (96-108); Estimated Glomerular Filt Rate > 60; Glucose Random 89 mg/dL (60-115); Potassium 4.2 mmol/L (3.3-5.1); Sodium 141 mmol/L (135-145); Total Protein 7.9 g/dL (6.5-8.0); Uric Acid 6.2 mg/dL (3.4-7.0)
[2023-06-25 15:40] LABS: Erythrocyte Sedimentation Rate 9 MM/HR (0-15)
== END 2023-06-25 11:07 | disposition home or self-care (01) ==
LOC: HO.WFDLDS 11:06
PROVIDERS: Visit Provider Family Medicine
DX: M10.9 Gout, unspecified (principal); R73.01 Impaired fasting glucose
CPT/HCPCS: 36415; 80053; 83036; 84550; 85652

== ENCOUNTER 2023-08-23 14:52 | Outpatient (AMB) | payer OTHER, SELFPAY ==
--- NOTE | 2023-08-23 15:03 | A.OFFVIS_ITS ---
Intake Vital Signs 08/23/23 15:04 Height 5 ft 7 in Weight 225 lb 4.999 oz BMI 35.3 BP 110/80 Blood Pressure Location Rt brachial Position Sitting Pulse 79 Pulse Source Pulse Oximeter Temp 97.5 F Temp Source Skin Pulse Oximetry (%) 100 Oxygen Delivery Method Room Air Intake Visit Reasons: Gout Intake Note: New patient presents today for gout. Reports pain is everywhere since approx 2019. 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 20-30mm Hg meloxicam 15 mg PO DAILY 30 days HPI HPI Comments History of Present Illness Details This is a 38-year-old male who presents for evaluation of gout. States that around 2019 started having episodes of multiple painful and swollen joints including his elbows, hands, ankles, knees. He had a couple of episodes where he had to go to the emergency room, last of which was in May, he went [facility] and his right knee was drained. He was evaluated by his PCP and started on allopurinol. Increasing doses. Recently increased to 300 mg in the beginning of 2023. Also taking meloxicam 15 mg daily. He stated that he has been doing fairly well for the last 3 months or so without significant flares. He denies any history of kidney stones. He has history of alcohol problem and has stopped drinking years ago. His brother has gout. Today his left ankle is hurting a little bit. [facility] Medical History Memory loss HTN (hypertension) Gout Surgical History No pertinent past surgical history Family History (Updated 08/23/23 @ 16:01 by Jesus Ferris MD) Mother No problems noted. Father No problems noted. Brother Gout Social History Housing: Apartment Alcohol intake: former Patient Tobacco Use Status: Never used Tobacco e-Cigarette/Vaping Use: Never Used Second Hand Smoke Exposure: No service: No Current occupational status: unemployed Current occupational exposures/hazards: No Cognitive needs: No Hearing needs: No Vision needs: No Review of Systems Musc Reports deformity, Reports arthralgias, Reports joint swelling and Reports limited range of motion Physical Exam Vital Signs: Last Vital Signs Temp 97.5 F 08/23/23 15:04 Pulse 79 08/23/23 15:04 BP 110/80 08/23/23 15:04 Pulse Ox 100 08/23/23 15:04 Oxygen Delivery Method Room Air 08/23/23 15:04 BMI result Body Mass Index 35.3 Const General: cooperative, healthy appearing and comfortable Nutritional Appearance: obese morbidly obese Orientation/consciousness: patient oriented x3 Limitations: no limitations HEENT Head: Yes normocephalic and Yes atraumatic Mouth: moist mucous membranes Resp Effort & Inspection: normal respiratory effort and able to speak in complete sentences Auscultation: clear to auscultation bilaterally Cardio Rate: regular rate Rhythm: regular rhythm Skin General skin exam: no rashes or lesions noted Neuro General: patient oriented x3 Extrem Other: No tophi on ears Large tophi on right 2nd MCP Multiple tophi especially on right hand, inability to flex right 4th finger. Tophi on extensor aspect of both elbows. 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 On exam he has multiple tophi. He has a gout flare-up affecting his left ankle. Discussed nature of gout and its management. Increase allopurinol to 400 mg daily. Start colchicine 0.6 mg Twice daily Can continue with meloxicam 15 mg daily for now Ice affected joints when in a flare Labs today Follow-up in 4 weeks Plan I spent 35 minutes reviewing patient's chart, evaluating patient, ordering diagnostic workup, counseling patient and documenting in the chart Orders: Orders Comprehensive Met. Panel Today M10.9 - Gout, unspecified Complete Blood Count Auto Diff Today M10.9 - Gout, unspecified Uric Acid Today M10.9 - Gout, unspecified [id number] Dehydrogen Today Z51.81 - Encounter for therapeutic drug level monitoring C Reactive Protein Today M10.9 - Gout, unspecified Erythrocyte Sedimentation Rate Today M10.9 - Gout, unspecified Medications: New allopurinol 100 mg PO DAILY 90 tabs 1RF colchicine 0.6 mg PO BID 60 tabs 2RF Changed From allopurinol 300 mg PO DAILY 30 days 30 tabs 3RF M10.9 - Gout, unspecified To allopurinol 300 mg PO DAILY 90 tabs 1RF M10.9 - Gout, unspecified Coding Level of Care Code New Pt Level 4 (04796) Diagnoses Idiopathic chronic gout of multiple sites with tophus M1A.09X1 Gout site: multiple sites Gout etiology: idiopathic Chronicity: chronic Presence of tophus: with tophus
[2023-08-23 15:04] VITALS: BP 110/80; PULSE 79; TEMP 36.4; O2SAT 100; BMI 35.3
== END 2023-08-23 15:53 | disposition home or self-care (01) ==
PROVIDERS: PCP Family Medicine; Visit Provider Student in an Organized Health Care Education/Training Program
DX: M1A.09X1 Idiopathic chronic gout, multiple sites, with tophus (tophi) (principal)
CPT/HCPCS: 99204

== ENCOUNTER → 2023-08-23 14:52 | Outpatient (BNVA) | payer OTHER, SELFPAY | PROVIDERS: PCP Family Medicine; Visit Provider Student in an Organized Health Care Education/Training Program | DX: M1A.09X1 Idiopathic chronic gout, multiple sites, with tophus (tophi) (principal) | CPT/HCPCS: 99202 ==

== ENCOUNTER 2023-09-23 09:55 | Outpatient (REF) | payer OTHER, SELFPAY ==
[2023-09-23 10:04] LABS: MANUAL DIFF FLAG NO
[2023-09-23 10:32] LABS: Basophils Absolute Auto 0.1 X10*3/uL (0.0-0.2); Eosinophils Absolute Auto 0.7 X10*3/uL (0.0-0.4); Eosinophils Percent Auto 9.6 % (0-4); Hematocrit 44.4 % (42.0-52.0); Hemoglobin 15.2 g/dl (14.0-18.0); Imm Gran Abs Auto 0.04 X10*3/uL (0.00-0.03); Imm Gran Pct Auto 0.6 % (0.0-0.4); Lymphocytes Percent Auto 27.9 % (20-40); Mean Corpuscular HGB Conc 34.2 g/dl (31.0-36.0); Mean Corpuscular Hemoglobin 30.5 pg (27.0-33.0); Mean Corpuscular Volume 89.2 fL (80.0-98.0); Mean Platelet Volume 8.8 fL (9.4-12.4); Monocytes Absolute Auto 0.6 X10*3/uL (0.1-1.2); Monocytes Percent Auto 7.8 % (2-11); Neutrophils Absolute Auto 3.8 x10*3/uL (2.0-8.3); Neutrophils Percent Auto 53.1 % (45-73); Platelet Count 272 X10*3/uL (160-400); Red Blood Count 4.98 X10*6/uL (4.60-5.80); Red Cell Distribution Width 13.4 % (11.0-16.0); White Blood Count 7.2 X10*3/uL (4.8-10.8)
[2023-09-23 11:28] LABS: Erythrocyte Sedimentation Rate 2 MM/HR (0-15)
[2023-09-23 11:34] LABS: Alanine Aminotransferase 21 U/L (0-40); Albumin Level 4.3 g/dL (3.5-5.0); Alkaline Phosphatase 67 U/L (39-117); Anion Gap 11 (12-20); Aspartate Amino Transferase 19 U/L (5-37); Bilirubin Total 0.6 mg/dL (0.0-1.0); Blood Urea Nitrogen 14 mg/dL (9-16); C Reactive Protein 0.16 mg/dL (< or = 0.50); Calcium 9.4 mg/dL (8.4-10.2); Carbon Dioxide 21 mmol/L (22-29); Chloride 113 mmol/L (96-108); Estimated Glomerular Filt Rate > 60; Glucose Random 106 mg/dL (60-115); Potassium 4.2 mmol/L (3.3-5.1); Sodium 141 mmol/L (135-145); Total Protein 7.2 g/dL (6.5-8.0); Uric Acid 7.7 mg/dL (3.4-7.0)
[2023-09-27 21:44] LABS: Glucose-6-Phosphate Dehydrogen 16.1 U/g Hgb (7.0-20.5)
== END 2023-09-23 09:56 | disposition home or self-care (01) ==
LOC: HO.LAB 09:55
PROVIDERS: Visit Provider Student in an Organized Health Care Education/Training Program
DX: M10.9 Gout, unspecified (principal); Z51.81 Encounter for therapeutic drug level monitoring
CPT/HCPCS: 36415; 80053; 82955; 84550; 85025; 85652; 86140

== ENCOUNTER 2023-09-28 08:12 | Outpatient (AMB) | payer OTHER, SELFPAY ==
[2023-09-28 08:15] VITALS: BP 112/78; PULSE 75; O2SAT 98; BMI 35.2
--- NOTE | 2023-09-28 08:15 | MHC.OFFVIS ---
Intake Vital Signs 09/28/23 08:15 Height 5 ft 7 in Weight 224 lb 13.944 oz BMI 35.2 BP 112/78 Blood Pressure Location Rt brachial Position Sitting Pulse 75 Pulse Source Pulse Oximeter Pulse Oximetry (%) 98 Oxygen Delivery Method Room Air Intake Visit Reasons: Gout Intake Note: Patient last seen 08/23/23 presents today for follow up and test results. Pt states he feels better. Information Clerk Brokerage Required: No Accompanied by: Mother Allergies No Known Allergies Allergy (Verified 09/28/23 08:20) Medication List - Last Reconciled 09/28/23 by Jesus Ferris MD allopurinol 100 mg PO DAILY allopurinol 300 mg PO DAILY colchicine 0.6 mg PO BID compr.stocking,knee,long,large Daily As directed, 90 days. 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 On allopurinol 400 mg daily and colchicine 0.6 mg Twice daily. Doing well overall with no recent gout flares. No complaints today Initial history: This is a 38-year-old male who presents for evaluation of gout. States that around 2020 started having episodes of multiple painful and swollen joints including his elbows, hands, ankles, knees. He had a couple of episodes where he had to go to the emergency room, last of which was in May, he went [facility] and his right knee was drained. He was evaluated by his PCP and started on allopurinol. Increasing doses. Recently increased to 300 mg in the beginning of 2023. Also taking meloxicam 15 mg daily. He stated that he has been doing fairly well for the last 3 months or so without significant flares. He denies any history of kidney stones. He has history of alcohol problem and has stopped drinking years ago. His brother has gout. Today his left ankle is hurting a little bit. [facility] Medical History Memory loss HTN (hypertension) Gout Surgical History No pertinent past surgical history Family History Mother No problems noted. Father No problems noted. Brother Gout Social History Housing: Apartment Alcohol intake: former Patient Tobacco Use Status: Never used Tobacco e-Cigarette/Vaping Use: Never Used Second Hand Smoke Exposure: No Substance Use Type: Marijuana service: No Current occupational status: unemployed Current occupational exposures/hazards: No Cognitive needs: No Hearing needs: No Vision needs: No Review of Systems Musc Reports deformity, Denies arthralgias and Denies joint swelling Physical Exam Vital Signs: Last Vital Signs Pulse 75 09/28/23 08:15 BP 112/78 09/28/23 08:15 Pulse Ox 98 09/28/23 08:15 Oxygen Delivery Method Room Air 09/28/23 08:15 BMI result Body Mass Index 35.2 Const General: cooperative, healthy appearing and comfortable Nutritional Appearance: obese morbidly obese Orientation/consciousness: patient oriented x3 Limitations: no limitations HEENT Head: Yes normocephalic and Yes atraumatic Mouth: moist mucous membranes Resp Effort & Inspection: normal respiratory effort and able to speak in complete sentences Cardio Rate: regular rate Rhythm: regular rhythm Skin General skin exam: no rashes or lesions noted Neuro General: patient oriented x3 Extrem Other: No tophi on ears Large tophi on right 2nd MCP Multiple tophi especially on right hand, inability to flex right 4th finger. Tophi on extensor aspect of both elbows. 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 Doing well overall with no recent gout flare-ups since last visit. On allopurinol 400 mg daily and colchicine 0.6 mg Twice daily Increase allopurinol to 500 mg daily for 1 month. Advised patient to call me in 1 month and I will prescribe 600 mg daily (300 mg x 2) Continue with colchicine 0.6 mg Twice daily Labs before next visit in 2 months Plan I spent 15 minutes reviewing patient's chart, evaluating patient, ordering diagnostic workup, counseling patient and documenting in the chart Orders: Orders Complete Blood Count Auto Diff 2 Months M1A.09X1 - Idiopathic chronic gout, multiple sites, with tophus (tophi) C Reactive Protein 2 Months M1A.09X1 - Idiopathic chronic gout, multiple sites, with tophus (tophi) Erythrocyte Sedimentation Rate 2 Months M1A.09X1 - Idiopathic chronic gout, multiple sites, with tophus (tophi) Comprehensive Met. Panel 2 Months M1A.09X1 - Idiopathic chronic gout, multiple sites, with tophus (tophi) Uric Acid 2 Months M1A.09X1 - Idiopathic chronic gout, multiple sites, with tophus (tophi) Medications: Changed From allopurinol 100 mg PO DAILY 90 tabs 1RF To allopurinol Combine with allopurinol 300 mg for a total of 500 mg daily 200 mg (2 x 100 mg) PO DAILY 60 tabs 0RF Refilled allopurinol 300 mg PO DAILY 30 tabs 0RF M10.9 - Gout, unspecified colchicine 0.6 mg PO BID 180 tabs 0RF Coding Level of Care Code Est Pt Level 3 (21978) Diagnoses Idiopathic chronic gout of multiple sites with tophus M1A.09X1 Gout site: multiple sites Gout etiology: idiopathic Chronicity: chronic Presence of tophus: with tophus
== END 2023-09-28 08:32 | disposition home or self-care (01) ==
PROVIDERS: PCP Family Medicine; Visit Provider Student in an Organized Health Care Education/Training Program
DX: M1A.09X1 Idiopathic chronic gout, multiple sites, with tophus (tophi) (principal)
CPT/HCPCS: 99213

== ENCOUNTER → 2023-09-28 08:12 | Outpatient (BNVA) | payer OTHER, SELFPAY | PROVIDERS: PCP Family Medicine; Visit Provider Student in an Organized Health Care Education/Training Program | DX: M1A.09X1 Idiopathic chronic gout, multiple sites, with tophus (tophi) (principal) | CPT/HCPCS: 99212 ==

== ENCOUNTER 2023-11-25 11:03 | Outpatient (REF) | payer SELFPAY ==
[2023-11-25 11:20] LABS: MANUAL DIFF FLAG NO
[2023-11-25 11:44] LABS: Basophils Absolute Auto 0.1 X10*3/uL (0.0-0.2); Basophils Percent Auto 0.9 % (0-2); Eosinophils Absolute Auto 0.6 X10*3/uL (0.0-0.4); Eosinophils Percent Auto 9.5 % (0-4); Hematocrit 43.7 % (42.0-52.0); Hemoglobin 14.8 g/dl (14.0-18.0); Imm Gran Abs Auto 0.03 X10*3/uL (0.00-0.03); Imm Gran Pct Auto 0.5 % (0.0-0.4); Lymphocytes Absolute Auto 1.7 X10*3/uL (1.2-4.9); Lymphocytes Percent Auto 26.8 % (20-40); Mean Corpuscular HGB Conc 33.9 g/dl (31.0-36.0); Mean Corpuscular Hemoglobin 30.8 pg (27.0-33.0); Monocytes Absolute Auto 0.5 X10*3/uL (0.1-1.2); Monocytes Percent Auto 8.2 % (2-11); Neutrophils Absolute Auto 3.4 x10*3/uL (2.0-8.3); Neutrophils Percent Auto 54.1 % (45-73); Platelet Count 282 X10*3/uL (160-400); Red Cell Distribution Width 13.2 % (11.0-16.0); White Blood Count 6.3 X10*3/uL (4.8-10.8)
[2023-11-25 12:05] LABS: Alanine Aminotransferase 20 U/L (0-40); Albumin Level 4.2 g/dL (3.5-5.0); Alkaline Phosphatase 65 U/L (39-117); Anion Gap 9 (12-20); Aspartate Amino Transferase 19 U/L (5-37); Bilirubin Total 0.6 mg/dL (0.0-1.0); Blood Urea Nitrogen 11 mg/dL (9-16); C Reactive Protein 0.25 mg/dL (< or = 0.50); Calcium 8.6 mg/dL (8.4-10.2); Carbon Dioxide 23 mmol/L (22-29); Chloride 113 mmol/L (96-108); Estimated Glomerular Filt Rate > 60; Glucose Random 99 mg/dL (60-115); Sodium 141 mmol/L (135-145); Uric Acid 5.7 mg/dL (3.4-7.0)
[2023-11-25 12:26] LABS: Erythrocyte Sedimentation Rate 2 MM/HR (0-15)
== END 2023-11-25 11:04 | disposition home or self-care (01) ==
LOC: HO.LAB 11:03
PROVIDERS: PCP Family Medicine; Visit Provider Student in an Organized Health Care Education/Training Program
DX: M1A.09X1 Idiopathic chronic gout, multiple sites, with tophus (tophi) (principal)
CPT/HCPCS: 36415; 80053; 84550; 85025; 85652; 86140